=== PATIENT | male | born 1940 | race Caucasian/White ===

== ENCOUNTER → 2017-04-19 | Day surgery (SDC) | payer MEDICARE, BC ==
[~2017-04-19] MED LIST: Lactated Ringers 1,000 ML IV SCH; Propofol 200 MG/20 ML SDV IV ONE
[2017-04-19 09:18] VITALS: BP 154/92
--- NOTE | 2017-04-19 14:35 | OR ---
DATE OF OPERATION: 04/19/2017 PREOPERATIVE DIAGNOSIS: FAMILY HISTORY OF COLON CANCER. POSTOPERATIVE DIAGNOSIS: FAMILY HISTORY OF COLON CANCER. SURGEON: Ryan Freeman MD PROCEDURE: FULL-LENGTH COLONOSCOPY. ANESTHESIA: IT COMMUNICATIONS MANAGER due to hypertension and anxiety. COMPLICATIONS: None. SPECIMEN: None. FINDINGS: 1. Full-length colonoscopy. 2. Zur[place] diverticulosis, moderate to severe. 3. Marginal prep. RECOMMENDATIONS: Followup colonoscopy every 5 years. INDICATIONS: The patient was in for physical, had been 5 years since his last colonoscopy. He has a family history of colon cancer. DESCRIPTION OF PROCEDURE: The patient was prepped and draped, placed in a left lateral decubitus position. A lubricated Olympus colonoscope was inserted and easily advanced to the cecum. The cecal vault had a lot of stool and it was hard to visualize, a lot of this was thick, which I had to irrigate, it was unsuccessful, but other than the pouch itself we were able to visualize quite well the entire ascending colon. Upon withdrawal, no evidence of any polyps, mass, ulceration, or bleeding sites were seen throughout the entire length of the colon with scattered stool throughout most of the left colon as well. The patient does have zurita diverticulosis severe in the sigmoid area. The rectal vault had a lot of stool. We were able to irrigate this and get most of it suctioned. No obvious lesions were seen. Retroflexion showed no perianal lesions. Air was then suctioned and scope was removed without complication. SAPPHIRE/JACKLYN /[id number]
== END ==
LOC: CC.SDS 07:27
PROVIDERS: ATTEND Family Medicine
DX: Z12.11 Encounter for screening for malignant neoplasm of colon (principal); Z80.0 Family history of malignant neoplasm of digestive organs; K57.30 Diverticulosis of large intestine without perforation or abscess without bleeding; N40.1 Benign prostatic hyperplasia with lower urinary tract symptoms; R35.1 Nocturia; I10 Essential (primary) hypertension; E78.00 Pure hypercholesterolemia, unspecified; G47.30 Sleep apnea, unspecified; E55.9 Vitamin D deficiency, unspecified; Z79.899 Other long term (current) drug therapy; Z88.8 Allergy status to other drugs, medicaments and biological substances; Z79.82 Long term (current) use of aspirin; Z87.891 Personal history of nicotine dependence
CPT/HCPCS: G0105; J7120; 00810; J2704

== ENCOUNTER 2022-06-05 16:32 | Emergency (ER) | payer MEDICARE, BC ==
[2022-06-05 16:40] VITALS: BP 146/82; PULSE 92
[2022-06-05] MEDS: Sodium Chloride 0.9% 1,000 ML IV SCH (17:14)
[2022-06-05] MEDS: Pantoprazole 40 MG Vial IVPUSH SCH (17:14)
[2022-06-05] MEDS: Ketorolac 30 MG/ML SDV IVPUSH ONE (18:58)
[2022-06-05] MEDS: Ondansetron 4 MG/2 ML SDV IVPUSH STA (18:58)
[2022-06-05] MEDS: Nirmatrelvir/Ritonavir 300 MG/100 MG Dose Pack PO SCH (19:10)
== END 2022-06-05 21:02 | disposition home or self-care (01) ==
LOC: CC.ED 16:32
DX: U07.1 COVID-19 (principal); I10 Essential (primary) hypertension; Z88.8 Allergy status to other drugs, medicaments and biological substances; Z79.82 Long term (current) use of aspirin; Z79.899 Other long term (current) drug therapy
CPT/HCPCS: 36415; 80053; 83735; 85025; 96361; 96374; 99283; 99284-25; A9270-GY; C9113; J7030; U0002

== ENCOUNTER → 2023-05-17 | Day surgery (SDC) | payer MEDICARE, BC ==
[~2023-05-17] MED LIST changes: +Ketamine 200 MG/20 ML MDV ONE; -Propofol 200 MG/20 ML SDV IV ONE; +Propofol 200 MG/20 ML SDV ONE
[2023-05-17 11:14] VITALS: BP 117/68; PULSE 69
== END ==
LOC: CC.SDS 08:50
PROVIDERS: ATTEND Family Medicine
DX: Z12.11 Encounter for screening for malignant neoplasm of colon (principal); K63.5 Polyp of colon; K57.30 Diverticulosis of large intestine without perforation or abscess without bleeding; E55.9 Vitamin D deficiency, unspecified; E78.00 Pure hypercholesterolemia, unspecified; G47.30 Sleep apnea, unspecified; I10 Essential (primary) hypertension; I25.10 Atherosclerotic heart disease of native coronary artery without angina pectoris; M19.90 Unspecified osteoarthritis, unspecified site; N40.1 Benign prostatic hyperplasia with lower urinary tract symptoms; N13.8 Other obstructive and reflux uropathy; Z80.0 Family history of malignant neoplasm of digestive organs; Z87.891 Personal history of nicotine dependence; Z79.899 Other long term (current) drug therapy; Z79.2 Long term (current) use of antibiotics; Z88.8 Allergy status to other drugs, medicaments and biological substances
CPT/HCPCS: 00812; 45380; 88305; 99100; J2704; J3490; J7120

== ENCOUNTER 2024-11-24 19:25 | Emergency (ER) | payer MEDICARE, BC ==
[2024-11-24 19:30] VITALS: BP 142/86; PULSE 110
[2024-11-24] MEDS: Acetaminophen 500 MG Tab PO ONE (19:32)
[2024-11-24 20:18] LABS: BASOPHILS ABSOLUTE AUTO 0.01 10^3/uL (0.00-0.50); BASOPHILS PERCENT AUTO 0.2 % (0-1); EOSINOPHILS ABSOLUTE AUTO 0.04 10^3/uL (0.00-1.50); EOSINOPHILS PERCENT AUTO 0.7 % (0-6); HEMATOCRIT 46.2 % (42.0-52.0); HEMOGLOBIN 15.7 g/dL (14.0-18.0); IMMATURE GRAN ABSOLUTE AUTO 0.01 10^3/uL (0.00-0.49); IMMATURE GRAN PERCENT AUTO 0.2 % (0.0-4.9); LYMPHOCYTES ABSOLUTE AUTO 0.87 10^3/uL (0.60-5.00); LYMPHOCYTES PERCENT AUTO 14.4 % (24-44); MEAN CORPUSCULAR HEMOGLOBIN 31.9 pg (27.0-32.0); MEAN CORPUSCULAR VOLUME 93.9 fL (83.0-97.0); MONOCYTES PERCENT AUTO 6.6 % (0-10); NEUTROPHILS ABSOLUTE AUTO 4.73 x10^3/uL (1.80-8.00); NEUTROPHILS PERCENT AUTO 77.9 % (41-71); PLATELET COUNT,PLT 198 10^3/uL (150-400); RED BLOOD CELL COUNT 4.92 x10^6/uL (4.50-6.00); WHITE BLOOD CELL COUNT,WBC 6.1 10^3/uL (4.0-11.0)
[2024-11-24 20:41] LABS: ALBUMIN 4.1 g/dL (3.4-5.0); BILIRUBIN TOTAL 0.7 mg/dL (0.0-1.0); C-REACTIVE PROTEIN 0.86 mg/dL (<=0.50); CALCIUM 9.3 mg/dL (8.4-10.1); CREATININE 1.1 mg/dL (0.7-1.3); EST CRCL DRUG DOSING (CG) 49.23 mL/min; POTASSIUM,K 4.1 mEq/L (3.5-5.0); PROTEIN TOTAL,TP 7.8 g/dL (6.4-8.2)
== END 2024-11-24 21:29 | disposition home or self-care (01) ==
LOC: CC.ED 19:25
DX: B34.9 Viral infection, unspecified (principal); I10 Essential (primary) hypertension; E78.00 Pure hypercholesterolemia, unspecified; Z88.8 Allergy status to other drugs, medicaments and biological substances; Z79.82 Long term (current) use of aspirin; Z79.899 Other long term (current) drug therapy
CPT/HCPCS: 36415; 71046; 80053; 83605; 85025; 86140; 87428-QW; 99283; 99284; A9270-GY